=== PATIENT | female | born 1980 | race Caucasian/White ===

== ENCOUNTER 2018-03-20 08:48 | Outpatient (CLI) | payer BC, SELFPAY ==
[2018-03-20 17:44] LABS: TSH (W/Ref FT4) 8.07 uIU/mL (0.358-3.74)
[2018-03-20 18:56] LABS: FREE T4 0.94 ng/dL (0.76-1.46)
== END 2018-03-20 09:08 ==
PROVIDERS: PCP Family Medicine; Visit Provider Family Medicine
DX: E03.9 Hypothyroidism, unspecified (principal)
CPT/HCPCS: 36415; 84439; 84443

== ENCOUNTER 2018-05-02 07:45 | Emergency (ER) | payer BC, SELFPAY ==
[2018-05-02 07:50] VITALS: BP 129/89; PULSE 78; RESP 16; TEMP 36; O2SAT 98
--- NOTE | 2018-05-02 08:19 | DI.RAD_ITS ---
SYMPTOM/DIAGNOSIS: RT POST CHEST PAIN, PROBABLE RHOMBOID STRAIN PA AND LATERAL CHEST: The cardiac and mediastinal contours have a normal appearance. The lungs are well inflated and clear. No infiltrate, effusion or pneumothorax is seen. No rib or spine fracture is visible. IMPRESSION: Negative chest xray.
--- NOTE | 2018-05-02 08:23 | W.ED.GENAD ---
Discharge Plan Disposition Patient Disposition: HOME Condition: Improving Discharge Details Chief Complaint: Nk/Back Pain Clinical Impression: Rhomboid myalgia Primary Care Provider: Criselda Barnett ED Provider: Vinay Cornelius Home Meds and New Rx's Prescriptions: Continued baclofen 10 mg tablet 10 mg PO TID PRN (Reason: muscle spasm) Qty: 30 RF: 1 polyethylene glycol 3350 [Miralax] 17 GM powder in packet 17 gm PO DAILY RF: 0 epinephrine 0.3 MG/0.3 ML auto-injector 0.3 mg IM PRN RF: 0 ibuprofen [Advil] 200 MG tablet 4 tab PO Q4H PRN RF: 0 Mirena 1 EACH intrauterine device 1 ea Intrauterine ONCE Qty: 1 RF: 0 levothyroxine 50 mcg tablet 50 mcg PO DAILY Qty: 90 RF: 5 Discharge Instructions Instructions: Muscle Spasm (ED) Additional Instructions: Keep hydrating so that you are urinating clear fluid 4-5 times per day. Begin a multivitamin that includes magnesium. Gentle foam rolling/pressure massage as we discussed. May use warm heat prior and ice after to assist in healing. Continue the use of Lidoderm patch, removing every 12 hours and then may use TENS unit. Ibuprofen 600-800 mg every 8 hours, with food for pain. May continue the use of baclofen as needed for mild muscle relaxation. Return or see nearest healthcare provider for any acute change in discomfort. Follow-up with Dr. 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 She has no rash, shortness of breath, recent illness. She arrives with normal vital signs and oxygenation. She is tender overlying the rhomboid muscles. Review of records reveals that she received an intramuscular shot of Depo-Medrol, and has been placed on baclofen by Dr. Luciano with minimal improvement. She also sought chiropractic evaluation. Differential diagnosis must include ruling out pneumothorax or ACS.?No evidence of PE in my opinion. Patient had screening EKG and chest x-ray. Lidoderm patch was placed. Recommend a TENS unit, gentle massage with foam roller, hydration, ongoing use of NSAIDs and baclofen. She stable for travel to [place] today as per her wishes. We discussed follow-up and return precautions ECG Data Attestation: I personally reviewed and interpreted this ECG (s) as follows: Interpretation: sinus rhythm, the rate is 57, QRS is narrow, no ST segment elevation. Unremarkable intervals HPI General Mode of arrival: ambulatory. Date/Time Provider Initiated Documentation: 05/02/18 07:59. Limitations to Documentation: no limitations. Information obtained by: patient and family. History of Present Illness 37 year old F presents to the emergency department with the chief complaint of Right posterior pain over days, described as moderate, Quality is described as aching, and is localized to the chest and back. Patient started experiencing this day(s) and it has been constant. Medication improves symptom(s), and Rest improves symptom(s), Movement worsens symptoms . Patient notes no other symptoms.; denies chest pain and fever/chills. Patient did receive the following treatments prior to arrival, none Related Data Home Medications Medication Instructions Recorded Confirmed epinephrine 0.3 mg IM PRN 12/22/12 05/02/18 polyethylene glycol 3350 [Miralax] 17 gm PO DAILY 12/22/12 05/02/18 ibuprofen [Advil] 4 tab PO Q4H PRN 03/08/13 05/02/18 Mirena 1 ea INTRAUTERINE ONCE #1 implant 07/08/17 05/02/18 levothyroxine 50 mcg tablet 50 mcg PO DAILY #90 tab-cap 03/26/18 05/02/18 baclofen 10 mg tablet 10 mg PO TID PRN #30 tab 05/01/18 05/02/18 Previous Rx's Medication Instructions Recorded levothyroxine 50 mcg tablet 50 mcg PO DAILY #90 tab-cap 03/26/18 baclofen 10 mg tablet 10 mg PO TID PRN #30 tab 05/01/18 Allergies Allergy/AdvReac Type Severity Reaction Status Date / Time No Known Allergies Allergy Unverified 05/02/18 07:56 General Stated Complaint: Nk/Back Pain VINICIO: 4 Review of Systems Review of Systems 8 systems reviewed and otherwise negative FOR[facility]LY [facility], 1928–1983 Surgical History section Hemorrhoidectomy Family History Mother Depression Father Back pain Depression Social History Smoking and Tabacco status: Never Exam Narrative Exam Narrative: GEN: awake, alert, oriented 3. Pleasant, well groomed, interactive. HEAD: Normocephalic, atraumatic ENT: Mucous membranes moist, oropharynx unremarkable, External ear exam unremarkable EYES: PERRL, EOMI NECK: Full ROM, no MAIK, no menigismus CHEST/RESP: Nontender, clear to auscultation bilateral, no wheeze/rhonchi/rales CARDIOVASCULAR: RRR, no murmur, rub kulwinder. 2+ Rad pulse bilateral Back: Tenderness over the medial border of the right scapula. No erythema, warmth, fluctuance. No rash EXT: Full ROM, no edema, no rash. Normal motor and sensation Neuro: Grossly normal neurologic exam, conversant, interactive. Psych: Speech fluent, thoughts congruent, affect normal Course Vital Signs Temperature 36 C L 05/02/18 07:50 Pulse 78 05/02/18 07:50 Respiratory Rate 16 05/02/18 07:50 Blood Pressure 129/89 05/02/18 07:50 Pulse Oximetry 98 05/02/18 07:50 Temperature 36 C L 05/02/18 07:50 Temperature Source Skin 05/02/18 07:50 Pulse 78 05/02/18 07:50 Respiratory Rate 16 05/02/18 07:50 Respiratory Effort Non-Labored 05/02/18 07:50 Blood Pressure 129/89 05/02/18 07:50 Blood Pressure Position Sitting 05/02/18 07:50 Pulse Oximetry 98 05/02/18 07:50 Oxygen Delivery Method Room Air 05/02/18 07:50 Oxygen Flow Rate 0 05/02/18 07:50 Pain Level 7 05/02/18 07:50
[2018-05-02] MEDS: Lidocaine 5% Patch 1 PATCH TP (08:34)
--- NOTE | 2018-05-02 08:56 | DI.VRAD_ITS ---
EXAM: XR Chest, 2 Views EXAM DATE/TIME: 05/02/2018 8:20 AM CLINICAL HISTORY: 37 years old, female; Pain; Chest pain; Right-sided chest pain; Patient HX: RT posterior cp, probable rhomboid strain. TECHNIQUE: XR of the chest, 2 views. COMPARISON: No relevant prior studies available. FINDINGS: Lungs: Unremarkable. No consolidation. Pleural space: Unremarkable. No pleural effusion. No pneumothorax. Heart/Mediastinum: Unremarkable. No cardiomegaly. Bones/joints: Unremarkable. IMPRESSION: No acute findings. Dictated and Authenticated by: Marquis Vega MD. Ordering:ONUR Mclean MD
== END 2018-05-02 09:05 | disposition home or self-care (01) ==
PROVIDERS: Emergency Provider Emergency Medicine; PCP Family Medicine
DX: M79.18 Myalgia, other site (principal)
CPT/HCPCS: 93005; 99284; 71046; 93010

== ENCOUNTER 2019-05-06 03:24 | Outpatient (CLI) | payer BC, SELFPAY ==
[2019-05-06 15:00] LABS: FREE T4 0.88 ng/dL (0.76-1.46)
== END 2019-05-06 03:44 ==
PROVIDERS: PCP Family Medicine; Visit Provider Family Medicine
DX: E03.9 Hypothyroidism, unspecified (principal)
CPT/HCPCS: 36415; 84439; 84443

== ENCOUNTER 2019-08-23 21:24 | Outpatient (REF) | payer BC, SELFPAY ==
[2019-08-23 23:15] LABS: TSH (W/Ref FT4) 3.75 uIU/mL (0.36-3.74)
== END 2019-08-23 21:44 ==
LOC: LBN 21:24
PROVIDERS: PCP Family Medicine; Visit Provider Family Medicine
DX: E03.9 Hypothyroidism, unspecified (principal)
CPT/HCPCS: 84439; 84443

== ENCOUNTER 2019-10-06 03:21 | Outpatient (CLI) | payer BC, SELFPAY ==
[2019-10-06 15:27] LABS: TSH (W/Ref FT4) 1.51 uIU/mL (0.36-3.74)
== END 2019-10-06 03:41 ==
PROVIDERS: PCP Family Medicine; Visit Provider Family Medicine
DX: E03.9 Hypothyroidism, unspecified (principal)
CPT/HCPCS: 36415; 84443

== ENCOUNTER 2020-08-24 09:37 | Outpatient (REF) | payer BC, SELFPAY ==
--- NOTE | 2020-08-24 08:45 | PAPFT_PTH ---
PATIENT: Lorene Simon LOC: [facility] U#:[id number] AGE/SX: 40/F ROOM: RE08/24/[address]: Criselda Barnett MD, DC : 1980 BED: DIS: 08/24/2020 SPEC #: [id number] RECD: 08/24/20 12:45 STATUS: JESSICA REQ #: [id number] SANDRA: 08/24/20 08:[address]: Criselda Barnett DEPT: [facility] Cytology RECD BY: Janet Noel Tissues: 1 - CX/ENDOCX FOR PAP SMEARS Procedures: PAP THIN PREP/UVM Screening HPV DNA PROBE Comments: [id number]
[2020-08-24 15:46] LABS: TSH (W/Ref FT4) 3.52 uIU/mL (0.36-3.74)
== END 2020-08-24 09:38 | disposition home or self-care (01) ==
LOC: LBN 09:37
PROVIDERS: PCP Family Medicine; Visit Provider Family Medicine
DX: Z12.4 Encounter for screening for malignant neoplasm of cervix (principal); Z11.51 Encounter for screening for human papillomavirus (HPV)
CPT/HCPCS: 88142; 84443; 87624

== ENCOUNTER 2021-09-21 01:41 | Outpatient (CLI) | payer BC, SELFPAY ==
--- OUTSIDE RECORDS SUMMARY | 2021-09-21 01:44 | XMS_ITS | Encounter Summary ---
:1980 [place] [address] Care Team Providers Name Role Phone Criselda Barnett MD Primary Care Provider Encounter Details Date Type Department Care Team Description 03/05/2011 Anesthesia Event Outpatient Surgery Cierra Bowman MD [facility] [place] [address] [facility] Kianna Steph Islas MD [facility] [address] [place] [address] Anesthesia Record Procedure Summary Procedure Name Responsible Anesthesia Start Anesthesia Stop Time Anesthesiologist Time EUA RECTUM (WRVU *) Cierra Bowman MD 03/05/11 0726 03/05/11 0812 (N/A Anus) Events Date Time Event Comment 03/05/2011 0702 0726 Start 0812 Stop No medications on file. Agents No agents on file. Blood No blood administrations on file. Lines, Drains, and Airways Type Details Placement Removal Incision 03/05/11; 0735; other 03/05/11 0735 by Yury, (see comments) (anus) Kerry Durán RN PIV 03/05/11; 07; 06/23/17 03/05/11 0722 by Anali chan, 06/23/17 0921 by Wanxue Education, (Auto removal via Gail Hines RN User utility); 0921 (Auto removal via utility) documented in this encounter Social History Tobacco Use Types Packs/Day Years Used Date Never Smoker Smokeless Tobacco: Never Used Sex Assigned at Date Recorded Not on file documented as of this encounter OR Notes Anesthesia Postprocedure Evaluation - Cierra Bowman MD - 03/06/2011 11:18 AM EST Patient: Lorene Simon Procedure(s) Performed: EUA RECTUM - CANDY CANES BOTOX 100 UNITS, HAGARS, RUBBER BAND ; CHEMODENERVATION OF INTERNAL ANAL SPHINCTER; DILATION OF RECTAL STRICTURE Patient location: PACU Post-op pain: Adequate analgesia Post-op nausea: no nausea or vomiting Last Vitals: Filed Vitals: 03/05/11 0830 BP: 105/64 Pulse: 84 Temp: Resp: 20 Post-op cardiovascular and respiratory status: is stable Level of consciousness: awake Complications: no apparent complications Fluid Status: normal Pt was seen and eval in recovery on DOS Anesthesia Preprocedure Evaluation - Sole Archer CRNA - 03/05/2011 6:49 AM EST Anesthesia Evaluation Hx of anesthetic complications (PONV) Airway Mallampati: II TM distance: >3 FB Neck ROM: full Dental Pulmonary breath sounds clear to auscultation (-) asthma, shortness of breath and recent URI Cardiovascular (-) hypertension, past NM, dysrhythmias and angina Rhythm: regular Rate: normal Neuro/Psych (-) seizures, TIA and CVA GI/Hepatic/Renal (-) GERD Endo/Other Abdominal Anesthesia Plan ASA 1 MAC and general with intravenous induction 30 yo for EUA, botox injection, dilation of anal stricture Denies cv/pulm dz Denies gerd Otherwise healthy PLAN MAC vs GA, ETT vs LMA depending on supine or prone position. Plan and risks d/w pt and ,signed consent obtained Anesthetic plan and risks discussed with patient. Plan discussed with ST[employer] G[employer] SAWYER. documented in this encounter Miscellaneous Notes Addendum Note - Susan Bright - 03/06/2011 11:31 AM EST Addendum created 03/06/11 1131 by Susan Bright Modules edited:Anesthesia Events, Anesthesia Responsible Staff documented in this encounter Plan of Treatment Not on filedocumented as of this encounter Visit Diagnoses Not on filedocumented in this encounter Care Teams Road Traffic Controller Relationship Specialty Start Date End Date Criselda Barnett MD PCP - General 01/30/10 10/03/[address] [place] [address] documented as of this encounter
--- OUTSIDE RECORDS SUMMARY | 2021-09-21 01:44 | XMS_ITS | Encounter Summary ---
:1980 Author Organization [facility] Address [address] [place] [address] Care Team Providers Name Role Phone Criselda Barnett MD Primary Care Provider Reason for Visit Reason Comments Follow-up Encounter Details Date Type Department Care Team Description 04/04/2011 Office Visit General Surgery at [facility], Leticia sure in ano (Primary Dx); [facility] [place] stenosis; [facility] Chr onic constipation [address] [facility] [id number] [place] [address] [phone] Social History Tobacco Use Types Packs/Day Years Used Date Never Smoker Smokeless Tobacco: Never Used Sex Assigned at Date Recorded Not on file documented as of this encounter Progress Notes [facility] Prakash - 04/04/2011 4:42 PM EST Colon and Rectal Surgery Post-operative Check 03/05/2011 Botox, gentle dilation Interval History: Mrs. Simon and her return for a postoperative check. She states that her pain is now better than before and the bleeding is gone. However, if she has a large stool it feels like giving . In general, her bowel movements are small in circumference and soft and she is taking the MiraLAX once a day and that is generally keeping her stools soft. Her pain is finally down to a 2/10 and it has converted from a sharp tearing pain to a more mild burning pain and she states that overall she is greater than 50% improved as to before the Botox treatment. She is continuing to do the sitz baths and stopped using nifedipine about a week and a half ago as it was giving her some skin irritation as did the nitroglycerin before she met me. I did not examine the patient for fear of exacerbating the fissure. What I recommended to the patient is to be patient, continue doing what she is doing, and offered her an appointment in six weeks followup. 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 Hopefully, she will obtain some lasting relief as it appears to be healing as per her symptoms. Thank you for this consultation. I appreciate the opportunity to participate in this patient's care. I personally spent a total of 25 minutes in [id number] exam and consultation with the patient, of which 15 were in patient education and counseling. 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
--- OUTSIDE RECORDS SUMMARY | 2021-09-21 01:44 | XMS_ITS | Clinical Summary ---
:1980 Author Organization [facility] [place] [address] Care Team Providers Name Role Phone Criselda Barnett MD Primary Care Provider Allergies No known active allergies Medications Medication Sig Dispensed Refills Start Date End Date Status Methylcellulose, Take by mouth 1 Bottle 0 02/04/2011 Active Laxative, (CITRUCEL daily. 1 heaping SUGAR FREE) Powd TABLEspoon in 8 oz. water daily; may increase to twice daily, goal = large soft bulky stool. NIFEdipine, Bulk, Place around the 30 g 1 02/04/2011 Active Powd anus. 0.2% Nifedipine ointment in Plastibase v. Aquaphor. Apply pea-sized amount to anus twice a day for six-weeks. OXYcodone Take 1 tablet by 20 tablet 0 03/05/2011 Ac tive (ROXICODONE) 5 mg mouth every 4 hours immediate release as needed for Pain. tablet norgestimate-ethinyl Take 1 tablet by 0 Active estradiol (ORTHO mouth daily. TRI-CYCLEN;TRI-SPRINT EC) 0.18/0.215/0.25 mg-35 mcg (28) tablet epiNEPHrine (EPIPEN) Inject 0.3 mLs into 0.3 mL 0 2 Active 0.3 mg/0.3 mL the muscle once as injectionIndications: needed for 1 dose. Angioedema cetirizine (ZYRTEC) Take 1 tablet by 60 tablet 3 10/16/2011 Active 10 mg mouth daily. 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 Anal stenosis 04/04/2011 S/P hemorrhoidectomy 03/05/2011 Fissure in ano 02/04/2011 Chronic constipation 02/04/2011 Resolved Problems Problem Noted Date Resolved Date Allergic reaction 10/16/2011 10/16/2011 Family History Medical History Relation Comments Breast Cancer Neg Hx Social History Tobacco Use Types Packs/Day Years Used Date Never Smoker Smokeless Tobacco: Never Used Sex Assigned at Date Recorded Not on file Last Filed Vital Signs Vital Sign Reading Time Taken Comments Blood Pressure 115/60 10/16/2011 10:02 AM EDT Pulse 84 03/05/2011 8:30 AM EST Temperature 36 ??C (96.8 ??F) 03/05/2011 8:10 AM EST Respiratory Rate 20 03/05/2011 8:30 AM EST Oxygen Saturation 100% 03/05/2011 8:30 AM EST Inhaled Oxygen Concentration - - Weight 64.6 kg (142 lb 6.7 oz) 10/16/2011 10:02 AM EDT Height 157.6 cm (5' 2.05) 10/16/2011 10:02 AM EDT Body Mass Index 26.01 10/16/2011 10:02 AM EDT Plan of Treatment Health Maintenance Due Date Last Done Comments Covid-19 Vaccine (#1) 1986 HIV screen 06/27/1999 Hepatitis C Screening 06/27/1999 Tdap adult 2000 Tetanus vaccine 2000 HPV test 06/27/2011 PAP Smear 06/27/2011 Breast Cancer Share Decision Needed 2021 Influenza (Flu) vaccine (1 of 1 - Influenza standard 11/08/2021 series) Insurance Payer Benefit Plan Subscriber ID Effective Dates Phone Address Type / Group [employer] [facility] [id number] 2018-Radhika [phone] [address] [employer] [facility] [address] [facility] [id number] Advance Directives Latest Code Status on File Code Status Date Activated Date Inactivated Comments Full Code 03/05/2011 8:16 AM 03/05/2011 11:48 AM Order Status: Initial Order Does patient have decision making capacity? Yes, Order is based on Patients wishes. Care Teams Stage Setting Painter Apprentice Relationship Specialty Start Date End Date Criselda Barnett MD PCP - General 10/16/[address] [place] [address]
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
--- OUTSIDE RECORDS SUMMARY | 2021-09-21 01:44 | XMS_ITS | Encounter Summary ---
:1980 Author Organization [facility] [place] [address] Care Team Providers Name Role Phone Criselda Barnett MD Primary Care Provider Encounter Details Date Type Department Care Team Description 10/23/2011 Telephone Allergy at [facility] Emily Conklin MD [facility] [place] [address] ALLERGY AND IMMUNOLOGY [phone] [place], [place] [address] (Wo rk) Social History Tobacco Use Types Packs/Day Years Used Date Never Smoker Smokeless Tobacco: Never Used Sex Assigned at Date Recorded Not on file documented as of this encounter Miscellaneous Notes Telephone Encounter - Emily Conklin MD - 10/23/2011 4:32 PM EDT pt was notified of normal C4 documented in this encounter Plan of Treatment Not on filedocumented as of this encounter Visit Diagnoses Not on filedocumented in this encounter Care Teams Workplace Rehabilitation Officer Relationship Specialty Start Date End Date Criselda Barnett MD PCP - General 10/16/[address] [place] [address] documented as of this encounter
--- OUTSIDE RECORDS SUMMARY | 2021-09-21 01:44 | XMS_ITS | Encounter Summary ---
:1980 Author Organization [place] [address] Care Team Providers Name Role Phone Criselda Barnett MD Primary Care Provider Reason for Referral - Closed Specialty Diagnoses / Procedures Referred By Contact Refer red To Contact Diagnoses Breast lump Criselda Barnett MD [facility] Rad Mammography Procedures US Breast Limited Bilat [address] [place], [place] [address] [place] [address] Phone: Referral ID Status Reason Start Date Expiration Date Visits Requ ested Visits Authorized [id number] Closed 05/30/2020 05/30/2021 1 1 Reason for Visit - Closed Specialty Diagnoses / Procedures Referred By Contact Refer red To Contact Diagnoses Breast lump Criselda Barnett MD [facility] Rad Mammography Procedures US Breast Limited Bilat [address] [place], [place] [address] [place] [address] Phone: Referral ID Status Reason Start Date Expiration Date Visits Requ ested Visits Authorized [id number] Closed 05/30/2020 05/30/2021 1 1 Encounter Details Date Type Department Care Team Description 05/31/2020 Hospital Encounter Mammography at [facility] Criselda Barnett MD Breast lump [address] [address] [place] [address] [phone] (Wo rk) Social History Tobacco Use Types Packs/Day Years Used Date Never Smoker Smokeless Tobacco: Never Used Sex Assigned at Date Recorded Not on file documented as of this encounter Medications at Time of Discharge Medication Sig Dispensed Refills Start Date End Date epiNEPHrine (EPIPEN) 0.3 Inject 0.3 mLs into the 0.3 mL 0 10/16/2011 mg/0.3 mL muscle once as needed injectionIndications: for 1 dose. Angioedema cetirizine (ZYRTEC) 10 Take 1 tablet by mouth 60 tablet 3 0 10/16/2011 mg tabletIndications: daily. Angioedema, Rhinitis, allergic norgestimate-ethinyl Take 1 tablet by mouth 0 estradiol (ORTHO daily. TRI-CYCLEN;TRI-SPRINTEC) 0.18/0.215/0.25 mg-35 mcg (28) tablet OXYcodone (ROXICODONE) 5 Take 1 tablet by mouth 20 tablet 0 03/05/2011 mg immediate release every 4 hours as needed tablet for Pain. Methylcellulose, Take by mouth daily. 1 1 Bottle 0 011 Laxative, (CITRUCEL heaping TABLEspoon in 8 SUGAR FREE) Powd oz. water daily; may increase to twice daily, goal = large soft bulky stool. NIFEdipine, Bulk, Powd Place around the anus. 30 g 1 1 04/06/2010 0.2% Nifedipine ointment in Plastibase v. Aquaphor. Apply pea-sized amount to anus twice a day for six-weeks. documented as of this encounter Plan of Treatment Not on filedocumented as of this encounter Procedures Procedure Name Priority Date/Time Associated Diagnosis Comme nts MAMMO BREAST US Routine 05/31/2020 3:09 PM Breast lump Result s for this LIMITED BILATERAL EDT procedure are in the results section. documented in this encounter Results US Breast Limited Bilat (05/31/2020 3:09 PM EDT) Anatomical Region Laterality Modality Breast Bilateral Mammography Specimen (Source) Anatomical Location Collection Method / Collectio n Time Received Time / Laterality Volume Impressions 05/31/2020 3:36 PM EDT No mammographic or directed ultrasound evidence of malignancy. Clinical follow-up advised in addition to annual mammographic screening at age 40. BI-RADS Category 2: Benign Findings * ??Regular screening mammograms startin g between age 40 and 50 reduces the risk of from breast cancer. * ??All screening tests have both risks and benefits. These risks and benefits should be assessed for each individual p atient through discussion with their provider to determine their preferred [facility] cancer screening schedule. * ??Women should report any breast forman es to a health care provider right away. * ??Some women, because of their family history, a genetic tendency, or other factors, should be screened with annual breast MRI as well as with mammograms. (The number of women who fall into this category is very small). Patients and health care providers should discuss the history of each patient to decide if earlier screening and/or breast MRI are appropriate. * ??Screening should continue as long as a woman is in good health and is expected to live 10 years or longer. * ??Screening mammography may not detect 10-15% of breast cancers. I have personally reviewed the image(s) and the resident's interpretation and agree with the findings, Merry chan MD at 05/31/2020 3:36 PM Thank you for letting us participate in the care of this patient. For questions regarding this report, please contact e number below. ? Narrative 05/31/2020 3:36 PM EDT EXAMINATION: US ??BREAST LIMITED BILATERAL, MAMMO DIAGNOSTIC CAD AND AKSHAT BILATERAL CLINICAL HISTORY: CHRONIC DISPROPORTION IN SIZED OF BREAST(LEFT LARGER THAN RIGHT). NEW ONSET OF CYSTIC LUMPS PALPAT ED: FIRST NOTICED BY PT WAS 10 O'CLOCK ON THE RIGHT BREAST 3 DAYS AGO. DURING E XAM TODAY MORE LESIONS PALPABLE: ANOTHER ON RIGHT BREAST AT 7 O'CLOCK, AND TWO ON RIGHT BREAST AT 7 O'CLOCK AND 10 O'CLOCK. ALL AREAS ARE <1 CM, MOVABLE AN D NON-TENDER. TECHNIQUE: CC and MLO views were obtaine d of each breast. 2-D and 3- D tomosynthesis images were obtained. Comp uter aided detection was used. Additionally, spot tangential views were obtained of the areas of clinical concern. Grayscale and color Doppler ult rasound of both breasts. COMPARISON: No prior breast imaging. FINDINGS: The breasts are heterogeneousl y dense, which may obscure small masses. The left breast is larger than the right consistent with the known history. There are 2 skin markers on each breast. Skin markers on the right breast project over the 10:00 and 7:00 radian. Skin markers on the left breast project over the 7 and 10:00 radians. No concern ing mass, microcalcification, or architectural distortion. Targeted ultrasound of the region to the skin markers shows sonographically unremarkable fibroglandular tissue. The right breast 10:00 radian 7 cm from the nipple there is a convexity of homogeneo usly hyperechoic tissue. At the right breast 7:00 radian 3 cm from the nipple again sonographically unremarkable fibroglandular tissue is noted with duct al structures nondistorted. In the left breast 4:00 radian 4 cm from the nipple there is a sonographically benign fat locule and at the left breast 7:00 radia n 7 cm from the nipple there is a flattened sonographically benign fat loc ule. Criselda Barnett MD IMG MAMMO ORDERABLES documented in this encounter Visit Diagnoses Diagnosis Breast lump Lump or mass in breast documented in this encounter Care Teams Senior Risk Analyst Relationship Specialty Start Date End Date Criselda Barnett MD PCP - General 10/16/[address] [place] [address] documented as of this encounter
--- OUTSIDE RECORDS SUMMARY | 2021-09-21 01:45 | XMS_ITS | Encounter Summary ---
:1980 Author Organization [facility] [place] [address] Care Team Providers Name Role Phone Criselda Barnett MD Primary Care Provider Encounter Details Date Type Department Care Team Description 03/04/2011 Orders Only General Surgery at [facility] Gerard Prakash MD [facility] [place] [address] GENERAL SURGERY [phone] [place], [place] [address] (Wo rk) Social History Tobacco Use Types Packs/Day Years Used Date Never Smoker Smokeless Tobacco: Never Used Sex Assigned at Date Recorded Not on file documented as of this encounter Plan of Treatment Not on filedocumented as of this encounter Visit Diagnoses Not on filedocumented in this encounter Care Teams Hims Coder Relationship Specialty Start Date End Date Criselda Barnett MD PCP - General 01/30/10 10/03/[address] [place] [address] documented as of this encounter
--- OUTSIDE RECORDS SUMMARY | 2021-09-21 01:45 | XMS_ITS | Encounter Summary ---
:1980 Author Organization [facility] [place] [address] Care Team Providers Name Role Phone Criselda Barnett MD Primary Care Provider Encounter Details Date Type Department Care Team Description 08/29/2010 Abstract General Surgery at [facility] Malia Nagy, [place] [address] Social History Tobacco Use Types Packs/Day Years Used Date Never Assessed Sex Assigned at Date Recorded Not on file documented as of this encounter Plan of Treatment Not on filedocumented as of this encounter Visit Diagnoses Not on filedocumented in this encounter Care Teams Debarker Operator Relationship Specialty Start Date End Date Criselda Barnett MD PCP - General 01/30/10 10/03/[address] [place] [address] documented as of this encounter
[2021-09-21 13:35] LABS: HCT 41.9 % (36.0-46.0); MCH 29.6 pg (27.0-33.0); MCHC 33.4 % (32.0-36.0); MCV 89 fL (80-95); MPV 9.5 fL (8.0-11.0); Platelet Count 188 10^3/uL (130-400); RBC 4.73 10^6/uL (3.93-5.22); RDW 12.8 % (11.7-14.6); WBC 6.41 10^3/uL (4.4-10.8)
[2021-09-21 14:09] LABS: TSH (W/Ref FT4) 2.47 uIU/mL (0.36-3.74)
[2021-09-21 14:19] LABS: Iron 72 ug/dL (50-170)
== END 2021-09-21 01:42 | disposition home or self-care (01) ==
LOC: LBO 01:41
PROVIDERS: PCP Family Medicine; Visit Provider Family Medicine
DX: E03.9 Hypothyroidism, unspecified (principal); N93.8 Other specified abnormal uterine and vaginal bleeding
CPT/HCPCS: 36415; 85027; 83540; 84443

== ENCOUNTER 2022-02-26 02:12 | Outpatient (CLI) | payer BC, SELFPAY ==
[2022-02-26 14:56] LABS: TSH (W/Ref FT4) 3.74 uIU/mL (0.36-3.74)
== END 2022-02-26 02:13 | disposition home or self-care (01) ==
LOC: LBO 02:12
PROVIDERS: PCP Family Medicine; Visit Provider Family Medicine
DX: E03.9 Hypothyroidism, unspecified (principal); F41.9 Anxiety disorder, unspecified
CPT/HCPCS: 36415; 84443

== ENCOUNTER 2022-10-21 03:56 | Outpatient (CLI) | payer BC, SELFPAY ==
[2022-10-21 08:01] LABS: TSH (W/Ref FT4) 4.25 uIU/mL (0.36-3.74)
[2022-10-21 08:17] LABS: FREE T4 1.04 ng/dL (0.76-1.46)
== END 2022-10-21 03:57 | disposition home or self-care (01) ==
LOC: LBO 03:56
PROVIDERS: PCP Family Medicine; Visit Provider Family Medicine
DX: Z00.00 Encounter for general adult medical examination without abnormal findings (principal); E03.9 Hypothyroidism, unspecified
CPT/HCPCS: 84439; 84443

== ENCOUNTER → 2022-10-25 01:41 | Outpatient (CLI) | payer BC, SELFPAY ==
--- NOTE | 2022-10-25 07:45 | DI.MAMMO_ITS ---
Exam(s) MAMMO SCREENING EXAM: MAMMO SCREENING CLINICAL HISTORY: screening,z12.39. TECHNIQUE: Bilateral full field digital CC and MLO mammographic images were obtained with 3D tomosyn thesis and utilizing computer aided detection (CAD). COMPARISON: Prior outside mammogram of May 2020 was reviewed. Ultrasound images May 2020 also r kitty (outside institution). FINDINGS: Fibroglandular tissue pattern the breast is again noted be moderately dense and previously described chronic size discrepancy in the breasts is again noted, left breast again noted to be larger than rig ht. There are no new spiculated masses nor malignant appearing microcalcification groups. There is no new significant architectural distortion nor skin thickening-retraction. IMPRESSION: No radiographic evidence of malignancy. BI-RADS Category 2 - Benign Findings Breast Density - Category C - Heterogeneously dense Breast density Category C or D implies that the patient has dense breast tissue. Dense breast tissue can make it harder to find cancer on a mammogram. Dense breast tissue is also associated with an incr eased risk of breast cancer. This information about the result of the mammogram report was provided to the patient to raise their awareness. Use this report when you speak with the patient about their risks for breast cancer, which includes their family history. At that time, you may recommend additional screening tests (Ultrasoun d or MRI) as these tests may add significant information. A negative radiographic report should not delay biopsy if a dominant or clinically suspicious mass is present. Up to ten percent of cancers are not identified on mammography. A negative report may reinforce clinical impression. Adenosis and dense breasts may obscure an underlying neoplasm. False positive reports average 6 to 10%. Patient will receive a letter notifying them of these results.
== END ==
PROVIDERS: PCP Family Medicine; Visit Provider Family Medicine
DX: Z12.31 Encounter for screening mammogram for malignant neoplasm of breast (principal)
CPT/HCPCS: 77063; 77067

== ENCOUNTER 2023-11-17 09:58 | Outpatient (REF) | payer BC, SELFPAY ==
--- NOTE | 2023-11-17 08:30 | PAPFT_PTH ---
PATIENT: Lorene Simon LOC: [facility] U#:[id number] AGE/SX: 43/F ROOM: RE11/17/[address]: Criselda Barnett MD, DC : 1980 BED: DIS: 11/17/2023 SPEC #: [id number] RECD: 11/17/23 13:05 STATUS: EJSSICA REJesus Manuel #: [id number] SANDRA: 11/17/23 08:[address]: Criselda Barnett DEPT: [facility] Cytology RECD BY: Janet Noel Tissues: 1 - CX/ENDOCX FOR PAP SMEARS Procedures: PAP THIN PREP/UVM Screening HPV DNA PROBE Comments: [id number] (HPV 16 & 18/45)
== END 2023-11-17 09:59 | disposition home or self-care (01) ==
LOC: LBN 09:58
PROVIDERS: PCP Family Medicine; Visit Provider Family Medicine
DX: Z12.4 Encounter for screening for malignant neoplasm of cervix (principal)
CPT/HCPCS: 88142; 87624

== ENCOUNTER 2023-11-19 03:41 | Outpatient (CLI) | payer BC, SELFPAY ==
[2023-11-19 16:53] LABS: Hemoglobin A1C 4.9 % (<5.7)
[2023-11-19 17:18] LABS: ALT 39 U/L (14-59); AST 27 U/L (15-37); Albumin 4.2 g/dL (3.4-5.0); Alkaline Phosphatase 66 U/L (46-116); BUN 9 mg/dL (7-18); Bilirubin, Total 0.46 mg/dL (0.2-1.0); CREATININE 0.8 mg/dL (0.55-1.02); Calcium 9.1 mg/dL (8.5-10.1); Calculated LDL 114 mg/dL (<100); Chloride 103 mmol/L (98-107); Cholesterol 192 mg/dL (<200); Estimated GFR 94.28 (mL/min/1.73m2); Glucose 120 mg/dL (74-106); HDL Cholesterol 68 mg/dL (40-60); Potassium 3.4 mmol/L (3.5-5.1); Sodium 140 mmol/L (136-145); TSH (W/Ref FT4) 3.78 uIU/mL (0.36-3.74); Total Protein 6.8 g/dL (6.4-8.2); Triglyceride 51 mg/dL (<150)
[2023-11-19 17:35] LABS: FREE T4 1.03 ng/dL (0.76-1.46)
[2023-11-20 19:21] LABS: Hepatitis C Ab w Rflx HCV PCR Negative (Negative)
== END 2023-11-19 03:42 | disposition home or self-care (01) ==
LOC: LBO 03:41
PROVIDERS: PCP Family Medicine; Visit Provider Family Medicine
DX: Z00.00 Encounter for general adult medical examination without abnormal findings (principal); Z11.59 Encounter for screening for other viral diseases; E03.9 Hypothyroidism, unspecified
CPT/HCPCS: 36415; 80053; 80061; 86803; 83036; 84439; 84443

== ENCOUNTER 2023-11-21 00:28 | Outpatient (CLI) | payer BC, SELFPAY ==
--- NOTE | 2023-11-21 08:00 | DI.MAMMO_ITS ---
Exam(s) MAMMO SCREENING EXAM: MAMMO SCREENING CLINICAL HISTORY: screening,Z12.39. TECHNIQUE: Bilateral full field digital CC and MLO mammographic images were obtained with 3D tomosyn thesis and utilizing computer aided detection (CAD). COMPARISON: Prior mammograms were reviewed. FINDINGS: The fibroglandular tissue pattern is again noted be moderately dense and the chronic size discrepancy in the breast is again noted, left again noted to be larger than the right. There are no new spiculated masses nor malignant appearing microcalcification groups. There is no significant architectural distortion nor skin thickening-retraction. IMPRESSION: No radiographic evidence of malignancy. BI-RADS Category 2 - Benign Findings Breast Density - Category C - Heterogeneously dense Breast density Category C or D implies that the patient has dense breast tissue. Dense breast tissue can make it harder to find cancer on a mammogram. Dense breast tissue is also associated with an incr eased risk of breast cancer. This information about the result of the mammogram report was provided to the patient to raise their awareness. Use this report when you speak with the patient about their risks for breast cancer, which includes their family history. At that time, you may recommend additional screening tests (Ultrasoun d or MRI) as these tests may add significant information. A negative radiographic report should not delay biopsy if a dominant or clinically suspicious mass is present. Up to ten percent of cancers are not identified on mammography. A negative report may reinforce clinical impression. Adenosis and dense breasts may obscure an underlying neoplasm. False positive reports average 6 to 10%. Patient will receive a letter notifying them of these results.
== END 2023-11-21 00:48 ==
LOC: DI 00:28
PROVIDERS: PCP Family Medicine; Visit Provider Family Medicine
DX: Z12.31 Encounter for screening mammogram for malignant neoplasm of breast (principal)
CPT/HCPCS: 77063; 77067

== ENCOUNTER 2024-12-21 03:28 | Outpatient (CLI) | payer OTHER, SELFPAY ==
[2024-12-21 16:38] LABS: HCT 41.1 % (36.0-46.0); HGB 13.9 g/dL (11.2-15.7); MCH 29.9 pg (27.0-33.0); MCHC 33.8 % (32.0-36.0); MCV 88 fL (80-95); MPV 9.4 fL (8.0-11.0); Platelet Count 243 10^3/uL (130-400); RBC 4.65 10^6/uL (3.93-5.22); RDW 12.6 % (11.7-14.6); RDW-SD 40.9 fL; WBC 8.86 10^3/uL (4.4-10.8)
[2024-12-21 17:38] LABS: ALT 33 U/L (14-59); AST 22 U/L (15-37); Albumin 3.8 g/dL (3.4-5.0); Alkaline Phosphatase 72 U/L (46-116); Anion Gap 8.6 mmol/L (3-11); BUN 13 mg/dL (7-18); Bilirubin, Total 0.4 mg/dL (0.2-1.0); CO2 27.4 mmol/L (21.0-32.0); Calcium 8.7 mg/dL (8.5-10.1); Chloride 102 mmol/L (98-107); Estimated GFR 71.69 (mL/min/1.73m2); Glucose 82 mg/dL (74-106); Potassium 3.6 mmol/L (3.5-5.1); Sodium 138 mmol/L (136-145); TSH (W/Ref FT4) 3.50 uIU/mL (0.36-3.74); Total Protein 6.8 g/dL (6.4-8.2)
== END 2024-12-21 03:29 | disposition home or self-care (01) ==
LOC: LBO 03:28
PROVIDERS: PCP Family Medicine; Visit Provider Family Medicine
DX: I10 Essential (primary) hypertension (principal); R21 Rash and other nonspecific skin eruption; E03.9 Hypothyroidism, unspecified
CPT/HCPCS: 36415; 80053; 85027; 84443